=== PATIENT | male | born 1990 | race American Indian/Alaskan Native ===

== ENCOUNTER 2016-06-20 10:42 | Emergency (ER) | payer SELFPAY ==
[2016-06-20] MEDS ORDERED: PHENERGAN/CODEINE 6.25-10 MG/5ML PO ONE (12:06)
[2016-06-20] MEDS ORDERED: TORADOL IM ONE (12:06)
--- NOTE | 2016-06-20 12:10 | Emergency Department Report ---
ED ENT HPI - General Chief complaint: Sore Throat Stated complaint: STYE LT EYE / COLD SX/POSS DEHYDRATION Source: patient Mode of arrival: Ambulatory Limitations: No Limitations - History of Present Illness Initial comments: 26 year old male presents to ED with sore throat x2-3 days and left sided stye on upper eyelid [id number]. Patient states he has unproductive cough x2-3 days. Patient denies fevers, neck swelling, N/V. Patient is stable, neurologically intact and in no acute distress. MD complaint: sore throat, difficulty swallowing -: Gradual Location: throat Severity: mild Quality: constant Consistency: constant Improves with: swallowing Worsens with: eating Associated Symptoms: cough, pain with swallowing, sore throat. denies: fever - Related Data Previous Rx's Medication Instructions Recorded Last Taken Type Hyoscyamine Subl [Levsin Sl] 0.25 mg SL Q4HR PRN #10 tablet 06/13/14 Unknown Rx Promethazine [Phenergan] 25 mg PO Q6H PRN #12 tablet 06/13/14 Unknown Rx RX: Ibuprofen [Motrin 600 MG tab] 600 mg PO Q8H PRN #20 tablet 06/13/14 Unknown Rx traMADol [Ultram] 50 mg PO Q6HR PRN #12 tablet 06/13/14 Unknown Rx Gentamicin 0.1% Top Oint(Nf) 1 applic TP TID #1 tube 06/20/16 Unknown Rx [Gentamicin 0.1% Top Oint (Nf)] Ketorolac [Toradol] 10 mg PO Q6H PRN #15 tablet 06/20/16 Unknown Rx Allergies Allergy/AdvReac Type Severity Reaction Status Date / Time No Known Allergies Allergy Unverified 06/13/14 14:49 ED Dental HPI - General Chief complaint: Sore Throat Stated complaint: STYE LT EYE / COLD SX/POSS DEHYDRATION Source: patient Mode of arrival: Ambulatory Limitations: No Limitations - Related Data Previous Rx's Medication Instructions Recorded Last Taken Type Hyoscyamine Subl [Levsin Sl] 0.25 mg SL Q4HR PRN #10 tablet 06/13/14 Unknown Rx Promethazine [Phenergan] 25 mg PO Q6H PRN #12 tablet 06/13/14 Unknown Rx RX: Ibuprofen [Motrin 600 MG tab] 600 mg PO Q8H PRN #20 tablet 06/13/14 Unknown Rx traMADol [Ultram] 50 mg PO Q6HR PRN #12 tablet 06/13/14 Unknown Rx Gentamicin 0.1% Top Oint(Nf) 1 applic TP TID #1 tube 06/20/16 Unknown Rx [Gentamicin 0.1% Top Oint (Nf)] Ketorolac [Toradol] 10 mg PO Q6H PRN #15 tablet 06/20/16 Unknown Rx Allergies Allergy/AdvReac Type Severity Reaction Status Date / Time No Known Allergies Allergy Unverified 06/13/14 14:49 ED Review of Systems ROS: Stated complaint: STYE LT EYE / COLD SX/POSS DEHYDRATION Other details as noted in HPI Constitutional: denies: chills, fever Eyes: other (left upper eyelid stye [id number]. no intraocular involvement or change in vision). denies: eye pain, eye discharge, vision change ENT: throat pain. denies: ear pain Respiratory: denies: cough, shortness of breath, wheezing Cardiovascular: denies: chest pain, palpitations Endocrine: no symptoms reported Gastrointestinal: denies: abdominal pain, nausea, diarrhea Genitourinary: denies: urgency, dysuria Musculoskeletal: denies: back pain, joint swelling, arthralgia Skin: denies: rash, lesions Neurological: headache. denies: weakness, paresthesias Psychiatric: denies: anxiety, depression Hematological/Lymphatic: denies: easy bleeding, easy bruising ED Past Medical Hx - Past Medical History Previous Medical History?: No - Surgical History Past Surgical History?: No - Social History Smoking Status: Current Every Day Smoker Substance Use Type: Alcohol - Medications Home Medications: Home Medications Medication Instructions Recorded Confirmed Last Taken Type Hyoscyamine Subl [Levsin Sl] 0.25 mg SL Q4HR PRN #10 tablet 06/13/14 Unknown Rx Promethazine [Phenergan] 25 mg PO Q6H PRN #12 tablet 06/13/14 Unknown Rx RX: Ibuprofen [Motrin 600 MG tab] 600 mg PO Q8H PRN #20 tablet 06/13/14 Unknown Rx traMADol [Ultram] 50 mg PO Q6HR PRN #12 tablet 06/13/14 Unknown Rx Gentamicin 0.1% Top Oint(Nf) 1 applic TP TID #1 tube 06/20/16 Unknown Rx [Gentamicin 0.1% Top Oint (Nf)] Ketorolac [Toradol] 10 mg PO Q6H PRN #15 tablet 06/20/16 Unknown Rx ED Physical Exam - General Limitations: No Limitations General appearance: alert, in no apparent distress - Head Head exam: Present: atraumatic, normocephalic - Eye Eye exam: Present: normal appearance, PERRL, EOMI, other (left upper eyelid stye ). Absent: scleral icterus, conjunctival injection, periorbital swelling - ENT ENT exam: Present: normal exam, mucous membranes moist, TM's normal bilaterally - Neck Neck exam: Present: normal inspection, full ROM - Respiratory Respiratory exam: Present: normal lung sounds bilaterally. Absent: respiratory distress - Cardiovascular Cardiovascular Exam: Present: regular rate, normal rhythm. Absent: systolic murmur, diastolic murmur, rubs, gallop - GI/Abdominal GI/Abdominal exam: Present: soft, normal bowel sounds. Absent: distended, tenderness, guarding - Rectal Rectal exam: Present: deferred - Extremities Exam Extremities exam: Present: normal inspection, full ROM - Back Exam Back exam: Present: normal inspection, full ROM - Neurological Exam Neurological exam: Present: alert, oriented X3 - Psychiatric Psychiatric exam: Present: normal affect, normal mood - Skin Skin exam: Present: warm, dry, intact, normal color. Absent: rash ED Course Vital Signs 06/20/16 10:59 Temperature 98.9 F Pulse Rate 64 Respiratory 16 Rate Blood Pressure 118/73 O2 Sat by Pulse 98 Oximetry ED Medical Decision Making - Medical Decision Making 26 year old male presents to ED with sore throat x 2-3 days. patient is stable, neurologically intact and in no acute distress. patient states he is feeling better. patient will be called with results if strep culture is positive or he can call back to medical records if he has not been called within 2-3 days. Strep and Flu testing in ED has resulted as negative. patient will be given antibiotic ointment for minor stye on left upper eyelid and is to follow up with PCP or Eye MD for re evaluation. Critical care attestation.: If time is entered above; I have spent that time in minutes in the direct care of this critically ill patient, excluding procedure time. ED Disposition Clinical Impression: Viral pharyngitis, Stye external Disposition: DISCHARGED TO HOME OR SELFCARE Is pt being admited?: No Does the pt Need Aspirin: No Condition: Stable Instructions: Pharyngitis (ED), Stye (ED) Prescriptions: Gentamicin 0.1% Top Oint(Nf) [Gentamicin 0.1% Top Oint (Nf)] 1 applic TP TID #1 tube Ketorolac [Toradol] 10 mg PO Q6H PRN #15 tablet PRN Reason: Pain Referrals: PRIMARY CARE, [Primary Care Provider] - 3-5 Days Forms: Work/School Release Form(ED)
[2016-06-20] MEDS ORDERED: BACITRACIN (ED) OINT PACKET TP ONE (12:15)
[2016-06-20 15:13] VITALS: BP 122/70
== END 2016-06-20 15:12 | disposition home or self-care (01) ==
LOC: ED 10:42
DX: J02.9 Acute pharyngitis, unspecified (principal); H00.014 Hordeolum externum left upper eyelid
CPT/HCPCS: 87116; 87400; 87430; 96372; 99282; J1885

== ENCOUNTER 2016-07-20 13:21 | Emergency (ER) | payer SELFPAY ==
[2016-07-20 13:31] VITALS: BP 124/84
--- NOTE | 2016-07-20 14:49 | Emergency Department Report ---
ED ENT HPI - General Chief complaint: Earache Stated complaint: LT EAR PAIN/MOUTH PAIN Time Seen by Provider: 07/20/16 14:34 Source: patient Mode of arrival: Ambulatory Limitations: No Limitations - History of Present Illness MD complaint: tooth pain, ear pain -: Gradual, week(s) Location: L ear Severity: moderate Quality: aching Associated Symptoms: toothache. denies: fever, sore throat, tinnitus, hearing loss, discharge from ear, rhinorrhea - Related Data Previous Rx's Medication Instructions Recorded Last Taken Type Hyoscyamine Subl [Levsin Sl] 0.25 mg SL Q4HR PRN #10 tablet 06/13/14 Unknown Rx Ibuprofen [Motrin 600 MG tab] 600 mg PO Q8H PRN #20 tablet 06/13/14 Unknown Rx Promethazine [Phenergan] 25 mg PO Q6H PRN #12 tablet 06/13/14 Unknown Rx traMADol [Ultram] 50 mg PO Q6HR PRN #12 tablet 06/13/14 Unknown Rx Gentamicin 0.1% Top Oint(Nf) 1 applic TP TID #1 tube 06/20/16 Unknown Rx [Gentamicin 0.1% Top Oint (Nf)] Ketorolac [Toradol] 10 mg PO Q6H PRN #15 tablet 06/20/16 Unknown Rx Amoxicillin [Amoxicillin TAB] 875 mg PO BID #20 tablet 07/20/16 Unknown Rx Prednisone [predniSONE 10 mg 10 mg PO .TAPER #1 tab.ds.pk 07/20/16 Unknown Rx (6-Day Pack, 21 Tabs)] Allergies Allergy/AdvReac Type Severity Reaction Status Date / Time No Known Allergies Allergy Unverified 06/13/14 14:49 ED Dental HPI - General Chief complaint: Earache Stated complaint: LT EAR PAIN/MOUTH PAIN Time Seen by Provider: 07/20/16 14:34 Source: patient Mode of arrival: Ambulatory Limitations: No Limitations - History of Present Illness MD complaint: tooth pain, ear pain Severity: moderate Quality: aching Worsens with: eating, chewing Dental Associated Symptons: Yes: Earache, Gum Swelling. No: Headache, Sore Throat, Fever - Related Data Previous Rx's Medication Instructions Recorded Last Taken Type Hyoscyamine Subl [Levsin Sl] 0.25 mg SL Q4HR PRN #10 tablet 06/13/14 Unknown Rx Ibuprofen [Motrin 600 MG tab] 600 mg PO Q8H PRN #20 tablet 06/13/14 Unknown Rx Promethazine [Phenergan] 25 mg PO Q6H PRN #12 tablet 06/13/14 Unknown Rx traMADol [Ultram] 50 mg PO Q6HR PRN #12 tablet 06/13/14 Unknown Rx Gentamicin 0.1% Top Oint(Nf) 1 applic TP TID #1 tube 06/20/16 Unknown Rx [Gentamicin 0.1% Top Oint (Nf)] Ketorolac [Toradol] 10 mg PO Q6H PRN #15 tablet 06/20/16 Unknown Rx Amoxicillin [Amoxicillin TAB] 875 mg PO BID #20 tablet 07/20/16 Unknown Rx Prednisone [predniSONE 10 mg 10 mg PO .TAPER #1 tab.ds.pk 07/20/16 Unknown Rx (6-Day Pack, 21 Tabs)] Allergies Allergy/AdvReac Type Severity Reaction Status Date / Time No Known Allergies Allergy Unverified 06/13/14 14:49 ED Review of Systems ROS: Stated complaint: LT EAR PAIN/MOUTH PAIN Other details as noted in HPI Constitutional: denies: chills, fever Eyes: denies: eye pain, eye discharge, vision change ENT: denies: ear pain, throat pain Respiratory: denies: cough, shortness of breath, wheezing Cardiovascular: denies: chest pain, palpitations Endocrine: no symptoms reported Gastrointestinal: denies: abdominal pain, nausea, diarrhea Genitourinary: denies: urgency, dysuria Musculoskeletal: denies: back pain, joint swelling, arthralgia Skin: denies: rash, lesions Neurological: denies: headache, weakness, numbness, paresthesias, confusion Psychiatric: denies: anxiety, depression Hematological/Lymphatic: denies: easy bleeding, easy bruising ED Past Medical Hx - Past Medical History Previous Medical History?: No - Surgical History Past Surgical History?: No - Social History Smoking Status: Current Every Day Smoker Substance Use Type: Alcohol - Medications Home Medications: Home Medications Medication Instructions Recorded Confirmed Last Taken Type Hyoscyamine Subl [Levsin Sl] 0.25 mg SL Q4HR PRN #10 tablet 06/13/14 Unknown Rx Ibuprofen [Motrin 600 MG tab] 600 mg PO Q8H PRN #20 tablet 06/13/14 Unknown Rx Promethazine [Phenergan] 25 mg PO Q6H PRN #12 tablet 06/13/14 Unknown Rx traMADol [Ultram] 50 mg PO Q6HR PRN #12 tablet 06/13/14 Unknown Rx Gentamicin 0.1% Top Oint(Nf) 1 applic TP TID #1 tube 06/20/16 Unknown Rx [Gentamicin 0.1% Top Oint (Nf)] Ketorolac [Toradol] 10 mg PO Q6H PRN #15 tablet 06/20/16 Unknown Rx Amoxicillin [Amoxicillin TAB] 875 mg PO BID #20 tablet 07/20/16 Unknown Rx Prednisone [predniSONE 10 mg 10 mg PO .TAPER #1 tab.ds.pk 07/20/16 Unknown Rx (6-Day Pack, 21 Tabs)] ED Physical Exam - General Limitations: No Limitations General appearance: alert, in no apparent distress - Head Head exam: Present: atraumatic, normocephalic - Eye Eye exam: Present: normal appearance, PERRL, EOMI - ENT ENT exam: Present: mucous membranes moist - Expanded ENT Exam Expanded Mouth exam: Absent: drooling, trismus, muffled voice 1 - Other (impacted wisdom tooth) 2 - Other (impacted wisdom tooth) - Neck Neck exam: Present: normal inspection - Respiratory Respiratory exam: Present: normal lung sounds bilaterally. Absent: respiratory distress - Cardiovascular Cardiovascular Exam: Present: regular rate, normal rhythm. Absent: systolic murmur, diastolic murmur, rubs, gallop - GI/Abdominal GI/Abdominal exam: Present: soft, normal bowel sounds - Rectal Rectal exam: Present: deferred - Extremities Exam Extremities exam: Present: normal inspection - Back Exam Back exam: Present: normal inspection - Neurological Exam Neurological exam: Present: alert, oriented X3 - Psychiatric Psychiatric exam: Present: normal affect, normal mood - Skin Skin exam: Present: warm, dry, intact, normal color. Absent: rash ED Course Vital Signs 07/20/16 13:27 Temperature 97.8 F Pulse Rate 66 Respiratory 16 Rate Blood Pressure 124/84 O2 Sat by Pulse 100 Oximetry Critical care attestation.: If time is entered above; I have spent that time in minutes in the direct care of this critically ill patient, excluding procedure time. ED Disposition Clinical Impression: Toothache Disposition: DISCHARGED TO HOME OR SELFCARE Is pt being admited?: No Condition: Stable Instructions: Toothache (ED) Prescriptions: Amoxicillin [Amoxicillin TAB] 875 mg PO BID #20 tablet Prednisone [predniSONE 10 mg (6-Day Pack, 21 Tabs)] 10 mg PO .TAPER #1 tab.[id number] Referrals: PRIMARY CARE, [Primary Care Provider] - 3-5 Days
== END 2016-07-20 15:04 | disposition home or self-care (01) ==
LOC: ED 13:21
DX: K08.89 Other specified disorders of teeth and supporting structures (principal); F17.200 Nicotine dependence, unspecified, uncomplicated
CPT/HCPCS: 99282